=== PATIENT | female | born 1980 | race Caucasian/White ===

== ENCOUNTER → 2018-05-30 | Outpatient (CLI) | payer OTHER ==
[~2018-05-30] MED LIST: ARIP10 PO; AZIT250 PO; BUPR150T2; BUPR150T2 PO; BUSP5 PO; Bactrim Ds Tab1 EACH PO; CLON.5; CLON.5 PO; CLON1; CLON1 PO; CYCL10 PO; DIVA500EC; DIVA500EC PO; HYDACE5 PO; IBUP400 PO; IBUP600 PO; IBUP800 PO; Klonopin0.5 MG PO; MELA3 PO; MELO7.5 PO; META800 PO; METCAR500 PO; MULVITMIND PO; NAPR375 PO; NAPR500 PO; NAPR550 PO; OLAN10; OLAN10 PO; OLANZAPINE 10 MG; OXYACE5T PO; PRODEXEL PO; PROM25 PO; SERT100; SERT100 PO; SERT50 PO; SULTRIDS PO; SULTRISS PO; TRAM50 PO; ZIPR60; ZIPR60 PO
[2018-06-01 16:09] LABS: HPV 16 Negative (Negative); HPV 18 Negative (Negative); HPV OTHER HR TYPES Negative (Negative)
[2018-06-02 20:06] LABS: HSV-1 DNA Negative (Negative); HSV-2 DNA Negative (Negative)
== END | disposition home or self-care (01) ==
LOC: LAB 17:36 → LAB SHORT 17:36
PROVIDERS: Nurse Practitioner Women's Health
DX: Z12.72 Encounter for screening for malignant neoplasm of vagina (principal); N89.8 Other specified noninflammatory disorders of vagina; N94.9 Unspecified condition associated with female genital organs and menstrual cycle
CPT/HCPCS: 87070; 87205; 87529; 87624; G0123

== ENCOUNTER → 2020-01-29 | Outpatient (CLI) | payer OTHER ==
[2020-01-29 19:47] LABS: U Amphetamine Screen Not Detected; U Barbituate Screen Not Detected; U Benzodiazapine Screen Not Detected; U Buprenorphine Screen Not Detected; U Cannabinoids Screen Not Detected; U Cocaine Screen Not Detected; U Methadone Screen Not Detected; U Methamphetamine Screen Not Detected; U Opiates Screen Not Detected; U Oxycodone Screen Not Detected; U Phencyclidine Screen Not Detected; U Propoxyphene Screen Not Detected
== END | disposition home or self-care (01) ==
LOC: LAB SHORT 17:49 → LAB 17:49
PROVIDERS: Nurse Practitioner Family
DX: Z51.81 Encounter for therapeutic drug level monitoring (principal); Z79.891 Long term (current) use of opiate analgesic

== ENCOUNTER → 2020-04-28 | Outpatient (CLI) | payer OTHER ==
[2020-04-28 15:18] LABS: U Amphetamine Screen Not Detected; U Barbituate Screen Not Detected; U Benzodiazapine Screen Not Detected; U Buprenorphine Screen Not Detected; U Cannabinoids Screen Not Detected; U Cocaine Screen Not Detected; U Methadone Screen Not Detected; U Methamphetamine Screen Not Detected; U Opiates Screen Not Detected; U Oxycodone Screen Not Detected; U Phencyclidine Screen Not Detected; U Propoxyphene Screen Not Detected
== END | disposition home or self-care (01) ==
LOC: LAB 13:17 → LAB SHORT 13:17
PROVIDERS: Nurse Practitioner Family
DX: Z51.81 Encounter for therapeutic drug level monitoring (principal); Z79.891 Long term (current) use of opiate analgesic

== ENCOUNTER 2023-07-24 07:25 | Emergency (ER) | payer SELFPAY ==
[~2023-07-24] VITALS: Ht 152.4 cm; Wt 44.5 kg
[2023-07-24 08:21] LABS: BASOPHILS ABSOLUTE AUTO 0.11 K/mm3 (0.00-0.23); BASOPHILS PERCENT AUTO 1 % (0-2); EOSINOPHILS ABSOLUTE AUTO 0.25 K/mm3 (0.00-0.68); EOSINOPHILS PERCENT AUTO 2 % (0-6); IMMATURE GRAN ABSOLUTE AUTO 0.05 K/mm3 (0.00-0.10); IMMATURE GRAN PERCENT AUTO 0 % (0-1); LYMPHOCYTES ABSOLUTE AUTO 2.39 K/mm3 (0.84-5.20); LYMPHOCYTES PERCENT AUTO 19 % (21-46); MONOCYTES ABSOLUTE AUTO 0.71 K/mm3 (0.16-1.47); MONOCYTES PERCENT AUTO 6 % (4-13); Mean Corpuscular HGB 31.2 pg (26.0-34.0); Mean Corpuscular HGB Conc 33.3 g/dL (31.5-36.5); Mean Corpuscular Volume 94 fL (80-100); Mean Platelet Volume 9.9 fL (9.1-12.4); NEUTROPHILS ABSOLUTE AUTO 9.04 K/mm3 (1.96-9.15); NEUTROPHILS PERCENT AUTO 72 % (41-73); Platelet Count 389 K/mm3 (150-400); RDW Coefficient Variation 12.7 % (11.7-14.2); RDW Standard Deviation 44.1 fL (35.1-46.3); Red Blood Cell Count 4.17 M/mm3 (3.80-5.20); White Blood Cell Count 12.55 K/mm3 (4.00-11.30)
[2023-07-24 08:36] LABS: Albumin, Blood 3.6 g/dL (3.4-5.0); Bilirubin, Total 0.2 mg/dL (0.1-1.0); Bun/Creatinine Ratio 31.6 (12.0-20.0); Calcium, Blood 8.6 mg/dL (8.5-10.1); Creatinine, Blood 0.44 mg/dL (0.40-1.00); Globulin, Blood 3.7 g/dL (2.2-4.0); Total Protein, Blood 7.3 g/dL (6.4-8.2)
[2023-07-24 09:47] VITALS: BP 136/78
== END 2023-07-24 09:47 | disposition home or self-care (01) ==
LOC: ER 07:25
PROVIDERS: Family Medicine
DX: J06.9 Acute upper respiratory infection, unspecified (principal); Z20.822 Contact with and (suspected) exposure to COVID-19; F17.210 Nicotine dependence, cigarettes, uncomplicated; Z79.899 Other long term (current) drug therapy; Z88.8 Allergy status to other drugs, medicaments and biological substances
CPT/HCPCS: 71046; 80053; 85025; 93005; 93010; 99284-25

== ENCOUNTER 2024-12-22 10:54 | Emergency (ER) | payer OTHER ==
[~2024-12-22] VITALS: Ht 147.3 cm; Wt 48.1 kg
[~2024-12-22 10:54] MED LIST changes: +MONT10T PO
[2024-12-22] MEDS ORDERED: FLUTICASONE-SA1 EAC8 INH (11:37)
[2024-12-22] MEDS ORDERED: Ketorolac Tromethamine 30mg Vial IV ONE (11:40)
[2024-12-22] MEDS ORDERED: Methocarbamol 500 MG Tab PO ONE (11:40)
[2024-12-22] MEDS ORDERED: Mag Sulfate 1 GM/D5% 100ML 100 ML IV ONE (11:40)
[2024-12-22] MEDS ORDERED: NS 1,000 ML IV SCH (11:40)
[2024-12-22 12:29] LABS: Bun/Creatinine Ratio 32.9 (12.0-20.0); Calcium, Blood 8.5 mg/dL (8.5-10.1); Creatinine, Blood 0.43 mg/dL (0.40-1.00); Magnesium, Blood 1.7 mg/dL (1.6-2.4)
[2024-12-22] MEDS ORDERED: Robaxin750 MG PO (13:19)
[2024-12-22 13:52] VITALS: BP 108/70
== END 2024-12-22 13:53 | disposition home or self-care (01) ==
LOC: ER 10:54
PROVIDERS: Student in an Organized Health Care Education/Training Program
DX: M62.461 Contracture of muscle, right lower leg (principal); M72.2 Plantar fascial fibromatosis; M76.31 Iliotibial band syndrome, right leg; F17.210 Nicotine dependence, cigarettes, uncomplicated; Z88.9 Allergy status to unspecified drugs, medicaments and biological substances; Z88.8 Allergy status to other drugs, medicaments and biological substances; Z79.899 Other long term (current) drug therapy; Z79.51 Long term (current) use of inhaled steroids
CPT/HCPCS: 80048; 83735; 93971; 96365; 96375; 99284-25; A9270; J1885; J3475; J7030